=== PATIENT | male | born 1995 | race Caucasian/White ===

== ENCOUNTER 2017-05-31 16:03 | Emergency (ER) | payer SELFPAY ==
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
--- NOTE | 2017-05-31 16:57 | Diagnostic Imaging Report ---
[facility] [id number] [facility].[address] [id number] Report Submission Date: May 31, 2017 4:56:03 PM CDT Patient Study Name: ALISSA PAULA Date: May 31, 2017 4:18:12 PM CDT Modality Type: CR Gender: M Description: UPPER EXTREMITY : 89 Institution: [facility] Physician: MINNIE CURIEL - ER Examination: Plain film hand History: Hand discomfort Comparison exams: None available Findings: 3 views the hand demonstrates fracture involving the distal margin of the 5th metacarpal. Posterior angulation. Remaining osseous cortical margins without irregularity. Lateral soft tissue abnormality. Impression: Fracture with posterior angulation distal margin 5th metacarpal. Electronically signed on May 31, 2017 4:56:03 PM CDT by: Donal ALVAREZ
[2017-05-31 17:03] VITALS: BP 137/79
== END 2017-05-31 17:01 | disposition home or self-care (01) ==
LOC: ED 16:03
DX: S62.606A Fracture of unspecified phalanx of right little finger, initial encounter for closed fracture (principal); X58.XXXA Exposure to other specified factors, initial encounter; Y93.9 Activity, unspecified; Y99.9 Unspecified external cause status
CPT/HCPCS: 73130; 99283; L3908